=== PATIENT | female | born 1960 | race Native Hawaiian/Other Pacific Islander ===

== ENCOUNTER 2016-08-06 16:02 | Outpatient (CLI) | payer OTHER ==
[~2016-08-06 16:02] MED LIST: GABA300C2 PO; PANT40TA PO
== END 2016-08-06 19:17 | disposition home or self-care (01) ==
LOC: RAD 16:02
DX: M54.9 Dorsalgia, unspecified (principal)

== ENCOUNTER 2016-12-31 12:55 | Outpatient (CLI) | payer OTHER | END 2016-12-31 19:04 | disposition home or self-care (01) | LOC: RESP 12:55 | DX: R06.02 Shortness of breath (principal) ==

== ENCOUNTER 2017-01-08 07:43 | Outpatient (CLI) | payer OTHER | END 2017-01-08 18:53 | disposition home or self-care (01) | LOC: RESP 07:43 | DX: R06.02 Shortness of breath (principal) | CPT/HCPCS: 93306 ==

== ENCOUNTER 2017-02-05 08:02 | Outpatient (CLI) | payer OTHER | END 2017-02-05 19:05 | LOC: MAMMO 08:02 | DX: Z12.31 Encounter for screening mammogram for malignant neoplasm of breast (principal) ==

== ENCOUNTER 2018-01-28 09:33 | Outpatient (CLI) | payer OTHER | END 2018-01-28 19:36 | disposition home or self-care (01) | LOC: RAD 09:33 | DX: J45.21 Mild intermittent asthma with (acute) exacerbation (principal) ==

== ENCOUNTER 2018-02-17 08:32 | Outpatient (CLI) | payer OTHER | END 2018-02-17 22:38 | disposition home or self-care (01) | LOC: MAMMO 08:32 | DX: Z12.31 Encounter for screening mammogram for malignant neoplasm of breast (principal) ==

== ENCOUNTER 2019-02-15 15:55 | Outpatient (CLI) | payer OTHER | END 2019-02-15 21:58 | disposition home or self-care (01) | LOC: LAB 15:55 | DX: R19.7 Diarrhea, unspecified (principal) | CPT/HCPCS: 87015; 87045; 87324; 87328; 87329; 87449; 87899 ==

== ENCOUNTER 2019-02-23 08:29 | Outpatient (CLI) | payer OTHER | END 2019-02-23 19:29 | disposition home or self-care (01) | LOC: MAMMO 08:29 | DX: Z12.31 Encounter for screening mammogram for malignant neoplasm of breast (principal) ==

== ENCOUNTER 2019-04-15 15:57 | Outpatient (CLI) | payer OTHER | END 2019-04-15 19:41 | disposition home or self-care (01) | LOC: RESP 15:57 | DX: J45.909 Unspecified asthma, uncomplicated (principal) ==

== ENCOUNTER 2019-07-27 10:06 | Outpatient (CLI) | payer OTHER | END 2019-07-27 19:41 | disposition home or self-care (01) | LOC: RAD 10:06 | DX: J40 Bronchitis, not specified as acute or chronic (principal) ==

== ENCOUNTER 2019-12-14 06:22 | Emergency (ER) | payer OTHER ==
[~2019-12-14] VITALS: Ht 165.1 cm; Wt 124.7 kg
[2019-12-14 06:37] VITALS: TEMP 97.8
[2019-12-14 07:09] LABS: PLATELET COUNT 261 K/uL (152-353)
[2019-12-14 07:19] LABS: POTASSIUM 3.7 mmol/L (3.6-5.2); SODIUM 142 mmol/L (136-145)
[2019-12-14 07:56] VITALS: BP 190/82
== END 2019-12-14 07:56 | disposition home or self-care (01) ==
LOC: ED 06:22
PROVIDERS: Emergency Medicine Emergency Medical Services
DX: F41.0 Panic disorder [episodic paroxysmal anxiety] (principal)
CPT/HCPCS: 80053; 84484; 85027; 93005; 99283

== ENCOUNTER 2020-03-08 08:28 | Outpatient (CLI) | payer OTHER | END 2020-03-08 23:20 | disposition home or self-care (01) | LOC: MAMMO 08:28 | DX: Z12.31 Encounter for screening mammogram for malignant neoplasm of breast (principal) ==

== ENCOUNTER 2020-09-29 08:32 | Emergency (ER) | payer OTHER ==
[~2020-09-29] VITALS: Ht 165.1 cm; Wt 127.0 kg
[2020-09-29 08:40] VITALS: TEMP 98.1
[2020-09-29] MEDS ORDERED: SINGULAIR4 MG PO (08:41)
[2020-09-29 10:15] VITALS: BP 188/88
== END 2020-09-29 10:15 | disposition home or self-care (01) ==
LOC: ED 08:32
DX: M19.012 Primary osteoarthritis, left shoulder (principal)
CPT/HCPCS: 96372; 99283; J1885

== ENCOUNTER 2020-10-15 09:47 | Emergency (ER) | payer OTHER ==
[~2020-10-15] VITALS: Ht 165.1 cm; Wt 127.0 kg
[~2020-10-15 09:47] MED LIST changes: +SINGULAIR4 MG PO
[2020-10-15 11:30] VITALS: TEMP 99
[2020-10-15 12:36] VITALS: BP 164/76
== END 2020-10-15 12:42 | disposition short-term general hospital (02) ==
LOC: ED 09:47
PROC: 0RSJXZZ Reposition Right Shoulder Joint, External Approach (ICD-10-PCS; principal; 2020-10-15)
DX: S43.084A Other dislocation of right shoulder joint, initial encounter (principal); W18.39XA Other fall on same level, initial encounter; Y92.89 Other specified places as the place of occurrence of the external cause
CPT/HCPCS: 96374; 96375; 96376; 99284; J1170; J1885; J2250

== ENCOUNTER 2021-01-01 16:40 | Outpatient (CLI) | payer OTHER | END 2021-01-01 22:05 | disposition home or self-care (01) | LOC: RAD 16:40 | PROVIDERS: ATTEND Internal Medicine Sleep Medicine | DX: J45.909 Unspecified asthma, uncomplicated (principal) ==

== ENCOUNTER 2021-03-23 12:23 | Outpatient (CLI) | payer OTHER ==
[2021-03-23 12:59] LABS: PLATELET COUNT 291 K/uL (152-353)
== END 2021-03-23 20:50 | disposition home or self-care (01) ==
LOC: LAB 12:23
PROVIDERS: ATTEND Internal Medicine
DX: Z00.00 Encounter for general adult medical examination without abnormal findings (principal); Z13.820 Encounter for screening for osteoporosis
CPT/HCPCS: 81000; 82306; 84439; 84443; 85027

== ENCOUNTER 2021-03-30 09:29 | Outpatient (CLI) | payer OTHER | END 2021-03-30 20:14 | disposition home or self-care (01) | LOC: MAMMO 09:29 | PROVIDERS: ATTEND Internal Medicine | DX: Z12.31 Encounter for screening mammogram for malignant neoplasm of breast (principal); Z13.820 Encounter for screening for osteoporosis; N95.8 Other specified menopausal and perimenopausal disorders ==

== ENCOUNTER 2021-05-24 13:47 | Outpatient (CLI) | payer OTHER | END 2021-05-24 19:15 | disposition home or self-care (01) | LOC: LAB 13:47 | PROVIDERS: ATTEND Internal Medicine | DX: N39.0 Urinary tract infection, site not specified (principal) | CPT/HCPCS: 81000; 87077; 87086; 87088; 87186 ==

== ENCOUNTER 2021-10-09 07:28 | Outpatient (CLI) | payer OTHER | END 2021-10-09 19:26 | disposition home or self-care (01) | LOC: LABW 07:28 | PROVIDERS: ATTEND Internal Medicine | DX: R73.9 Hyperglycemia, unspecified (principal) | CPT/HCPCS: 36415; 82947; 83036 ==

== ENCOUNTER 2021-11-22 08:28 | Outpatient (CLI) | payer OTHER | END 2021-11-22 19:04 | disposition home or self-care (01) | LOC: RESP 08:28 | PROVIDERS: ATTEND Nurse Practitioner Family | DX: R06.09 Other forms of dyspnea (principal) ==

== ENCOUNTER 2022-04-01 13:53 | Outpatient (CLI) | payer OTHER | END 2022-04-01 20:31 | disposition home or self-care (01) | LOC: MAMMO 13:53 | PROVIDERS: ATTEND Internal Medicine | DX: Z12.31 Encounter for screening mammogram for malignant neoplasm of breast (principal) ==

== ENCOUNTER 2022-05-19 07:27 | Observation (INO) | payer OTHER ==
[2022-05-19] VITALS (9 sets, daily range): BP systolic 100–157; BP diastolic 40–87; TEMP 98–98.8
[~2022-05-19] VITALS: Ht 165.1 cm; Wt 123.9 kg
[~2022-05-19 07:27] MED LIST changes: -PANT40TA PO; +PANTOPRAZOLE 40MG TA PO
[2022-05-19 08:01] LABS: PLATELET COUNT 337 K/uL (152-353)
[2022-05-19 08:05] LABS: POTASSIUM 4.1 mmol/L (3.6-5.2)
[2022-05-19] MEDS ORDERED: MONT10TA PO (17:48)
[2022-05-19] MEDS ORDERED: METF100038 PO (17:49)
[2022-05-19] MEDS ORDERED: FLUTMIS6 INH (17:55)
[2022-05-19] MEDS ORDERED: VITAMIN D35000 UNI1 PO (17:55)
[2022-05-19] MEDS ORDERED: [UNRECOGNIZED DRUG - OTHER] SC (17:57)
[2022-05-19] MEDS ORDERED: [UNRECOGNIZED DRUG - REMARK] (17:58)
[2022-05-20 03:52] VITALS: BP 90/42; TEMP 98.4
[2022-05-20 08:00] VITALS: BP 99/59; TEMP 97.9
[2022-05-20] MEDS ORDERED: LOSA50TA PO (11:57)
[2022-05-20 12:00] VITALS: BP 122/52; TEMP 97.7
== END 2022-05-20 13:47 | disposition home or self-care (01) ==
LOC: ED 07:27 → MED/SURG 08:45
PROVIDERS: Emergency Medicine; ADMIT Family Medicine; ATTEND Internal Medicine
DX: R00.2 Palpitations (principal); I10 Essential (primary) hypertension; E11.9 Type 2 diabetes mellitus without complications; E66.8 Other obesity; K21.9 Gastro-esophageal reflux disease without esophagitis; M15.8 Other polyosteoarthritis; R07.89 Other chest pain; J45.998 Other asthma; R06.02 Shortness of breath; G47.33 Obstructive sleep apnea (adult) (pediatric)
CPT/HCPCS: 36415; 80053; 82550; 82948; 83735; 83880; 84100; 84443; 84484; 85027; 85379; 85610; 85730; 87635; 93005; 96360; 96366; 96372; 99220; 99284; G0378; J1650; U0003

== ENCOUNTER 2022-05-23 13:13 | Outpatient (CLI) | payer OTHER ==
[~2022-05-23 13:13] MED LIST changes: +FLUTMIS6 INH; +LOSA50TA PO; +METF100038 PO; +MONT10TA PO; +VITAMIN D35000 UNI1 PO; +[UNRECOGNIZED DRUG - OTHER] SC; +[UNRECOGNIZED DRUG - REMARK]
== END 2022-05-23 19:00 | disposition home or self-care (01) ==
LOC: RESP 13:13
PROVIDERS: ATTEND Internal Medicine
DX: I10 Essential (primary) hypertension (principal); R00.2 Palpitations
CPT/HCPCS: 93225

== ENCOUNTER 2022-05-24 13:13 | Outpatient (CLI) | payer OTHER | END 2022-05-24 19:12 | disposition home or self-care (01) | LOC: RESP 13:13 | PROVIDERS: ATTEND Internal Medicine | DX: I10 Essential (primary) hypertension (principal); R00.2 Palpitations ==

== ENCOUNTER 2023-02-14 07:51 | Outpatient (CLI) | payer OTHER | END 2023-02-14 18:53 | disposition home or self-care (01) | LOC: LABW 07:51 | PROVIDERS: ATTEND Internal Medicine Gastroenterology | DX: K59.1 Functional diarrhea (principal) | CPT/HCPCS: 82656; 82705; 83630; 87015; 87045; 87324; 87328; 87329; 87449; 87899 ==